=== PATIENT | female | born 1965 | race Caucasian/White ===

== ENCOUNTER 2020-02-11 15:45 | Emergency (ER) | payer BC ==
[2020-02-11] MEDS ORDERED: methylPREDNISolone Sodium Succinate 125 MG/2 ML SDV IM ONE (16:21)
[2020-02-11] MEDS ORDERED: HYDROmorphone 1 MG/ML Syringe IM ONE (16:21)
[2020-02-11] MEDS ORDERED: Acetaminophen/HYDROcodone 325-5 MG Tab PO ONE (16:23)
--- NOTE | 2020-02-11 16:29 | EDM.PDOC ---
ED HPI GENERAL MEDICAL PROBLEM - General Chief Complaint: Back Pain or Injury Stated Complaint: SEVER BACK PAIN RADIATING TO LEFT LEG Time Seen by Provider: 02/11/20 15:49 Source of Information: Reports: Patient History Limitations: Reports: No Limitations - History of Present Illness INITIAL COMMENTS - FREE TEXT/NARRATIVE: HISTORY AND PHYSICAL: History of present illness: Patient is a 54-year-old female who presents to the emergency room with complaints of acute on chronic back pain. She states she does take multiple controlled substances for her chronic back pain, although she is out of these recently due to a move to [place] from [place]. She last filled her medications in December 2019. Approximately 3 days ago she slipped and caught herself before falling. She says since that time she has had generalized back pain that radiates down her left glute. She declines wanting any imaging stating that she has had multiple x-rays, CT and MRIs in the past. She denies falling, hitting her head, urinary or fecal incontinence, numbness, tingling, weakness or neurological/motor deficits. She is requesting that multiple medications be refilled, stating "no one will refill these". She is unsure of all the names but does have 3 different pharmacies in which she has been filling her prescriptions with while living in [place]. Patient denies any fever, chills, headache, change in vision, syncope or near syncope. Denies any chest pain, back pain, shortness of breath or cough. Denies any abdominal pain, nausea, vomiting, diarrhea, constipation or dysuria. Has not noted any blood in urine or stool. Patient has been eating and drinking appropriately. Review of systems: As per history of present illness and below otherwise all systems reviewed and negative. Past medical history: As per history of present illness and as reviewed below otherwise noncontributory. Surgical history: As per history of present illness and as reviewed below otherwise noncontributory. Social history: See social history for further information Family history: As per history of present illness and as reviewed below otherwise noncontributory. Physical exam: General: Well-developed and well-nourished 54-year-old female. Alert and oriented. Nontoxic-appearing and in no acute distress. HEENT: Atraumatic, normocephalic, pupils equal and reactive bilaterally, ne gative for conjunctival pallor or scleral icterus, mucous membranes moist, TMs normal bilaterally, throat clear, neck supple, nontender, trachea midline. No drooling or trismus noted. No meningeal signs. No hot potato voice noted. Lungs: Clear to auscultation, breath sounds equal bilaterally, chest nontender. Heart: S1S2, regular rate and rhythm without overt murmur Abdomen: Soft, nondistended, nontender. Negative for masses or hepatosplenomegaly. Negative for costovertebral tenderness. Pelvis: Stable nontender. C-spine/Back: No pinpoint vertebral tenderness upon palpation. Bilateral paraspinous tenderness in the thoracic and lumbar region. No crepitus, step- offs or obvious deformities. Patient is ambulatory into the emergency room without difficulty or deficit. Able to rock back on heels and walk on toes. Denies any urinary or fecal incontinence. Denies any numbness, tingling or saddle paresthesia. No concerns of serious infection, fracture or cord compression, or cauda equina syndrome. Deep tendon reflexes brisk bilaterally. Skin: Intact, warm, dry. No lesions or rashes noted. Hematologic: No petechiae or purpra. Mucosa appropriate color and normal nail bed color and refill. Extremities: Atraumatic, moves all extremities per self without difficulty or deficits, negative for cords or calf pain. Neurovascular unremarkable. Neuro: Awake, alert, oriented. Cranial nerves II through XII unremarkable. Cerebellum unremarkable. Motor and sensory unremarkable throughout. Exam nonfocal. Notes: Patient declines wanting any diagnostics at this time. Nursing staff has called the pharmacies the patient provided, some of the medications she is requesting to be refilled have not been filled since 2019. I will do a 20 day supply of patient's medications, this way she can be followed up with by primary care provider and establish care to have her medications further refilled. Upon reevaluation she is appropriate for discharge. Supportive care measures were reviewed and discussed. Voices understanding and is agreeable to plan of care. Denies any further questions or concerns at this time. Diagnostics: Declines Therapeutics: Solu-Medrol, Morganza #1 Prescription: Abilify (#20) Wellbutril (#20) Morganza (#15) Albuterol (#1) Sulindac (#40) Impression: Encounter for pain management Encounter for medication refill Back pain Plan: 1. The medication you received today does cause drowsiness, so do not drive for the remaining day 2. When resting please lay on a flat firm surface. Limit your immobility to prevent muscle stiffness. Get up to ambulate/move around/gentle stretching multiple times throughout the day. May alternate heat and ice to the painful areas 3. Tylenol as needed for back pain. 4. Please establish with a primary care provider to have all of your home medications refilled. THE ER WILL NOT REFILL your medications further 5. If your symptoms should worsen, new symptoms develop or any of the signs and symptoms we discussed should arise please return to the emergency room or call 911 (if needed). Definitive disposition and diagnosis as appropriate pending reevaluation and review of above. back Pain Score (Numeric/FACES): 7 - Related Data Allergies Allergy/AdvReac Type Severity Reaction Status Date / Time codeine Allergy Other Verified 02/11/20 16:21 diphenhydramine Allergy Other Verified 02/11/20 16:21 [From Benadryl] Home Meds: Home Meds ARIPiprazole [Abilify] 5 mg PO DAILY 20 Days #20 02/11/20 [Rx] Acetaminophen/HYDROcodone [Morganza 325-5 MG] 1 tab PO TID #15 tablet 02/11/20 [Rx] Albuterol [Ventolin HFA] 2 puff INH Q4H PRN #1 inhaler 02/11/20 [Rx] Hydrocodone/Acetaminophen [Hydrocodone-Acetamin 10-325 mg] 1 each PO Q12HR 02/11/20 [History] Sulindac [Clinoril] 150 mg PO BID 20 Days #40 cap 02/11/20 [Rx] buPROPion HCL [Wellbutrin Xl] 150 mg PO DAILY 20 Days #20 02/11/20 [Rx] ED ROS GENERAL - Review of Systems Review Of Systems: Comprehensive ROS is negative, except as noted in HPI. ED EXAM,LOWER BACK PAIN/INJURY - Physical Exam Exam: See Below (See dictation) Course - Vital Signs Last Recorded V/S: Last Vital Signs Temp 97.5 F 02/11/20 16:16 Pulse 80 02/11/20 16:16 Resp 16 02/11/20 16:16 BP 136/61 02/11/20 16:16 Pulse Ox 97 02/11/20 16:16 - Orders/Labs/Meds Meds: Medications Discontinued Medications Generic Name Dose Route Start Last Admin Trade Name Freq PRN Reason Stop Dose Admin Hydrocodone Bitart/Acetaminophen 1 tab 02/11/20 16:23 02/11/20 16:48 Morganza 325-5 Mg PO 02/11/20 16:24 1 tab ONETIME ONE Administration Hydromorphone HCl 1 mg 02/11/20 16:21 Dilaudid IM 02/11/20 16:22 ONETIME ONE Methylprednisolone Sodium Succinate 125 mg 02/11/20 16:21 02/11/20 16:48 Solu-Medrol IM 02/11/20 16:22 125 mg ONETIME ONE Administration Departure - Departure Time of Disposition: 16:54 Disposition: Home, Self-Care 01 Clinical Impression: Encounter for pain management, Encounter for medication refill Back pain Qualifiers: Back pain location: low back pain Chronicity: unspecified Back pain laterality: bilateral Sciatica presence: with sciatica Sciatica laterality: sciatica of left side Qualified Code(s): M54.42 - Lumbago with sciatica, left side - Discharge Information Prescriptions: ARIPiprazole [Abilify] 5 mg PO DAILY 20 Days #20 Sulindac [Clinoril] 150 mg PO BID 20 Days #40 cap Acetaminophen/HYDROcodone [Morganza 325-5 MG] 1 tab PO TID #15 tablet Albuterol [Ventolin HFA] 2 puff INH Q4H PRN #1 inhaler PRN Reason: Shortness Of Breath buPROPion HCL [Wellbutrin Xl] 150 mg PO DAILY 20 Days #20 Instructions: Pain Medicine Instructions, [id number] Referrals: PCP,Not In Area [Primary Care Provider] - Forms: ED Department Discharge Additional Instructions: The following information is given to patients seen in the emergency department who are being discharged to home. This information is to outline your options for follow-up care. We provide all patients seen in our emergency department with a follow-up referral. The need for follow-up, as well as the timing and circumstances, are variable depending upon the specifics of your emergency department visit. If you don't have a primary care physician on staff, we will provide you with a referral. We always advise you to contact your personal physician following an emergency department visit to inform them of the circumstance of the visit and for follow-up with them and/or the need for any referrals to a consulting specialist. The emergency department will also refer you to a specialist when appropriate. This referral assures that you have the opportunity for follow-up care with a specialist. All of these measure are taken in an effort to provide you with optimal care, which includes your follow-up. Under all circumstances we always encourage you to contact your private physician who remains a resource for coordinating your care. When calling for follow-up care, please make the office aware that this follow-up is from your recent emergency room visit. If for any reason you are refused follow-up, please contact the [facility] Emergency Department at and asked to speak to the emergency department charge nurse. [facility] [address] [place] [id number] [id number] Thank you for choosing the [facility] emergency department in [place] for your medical needs today. It was a pleasure caring for you. Today you were seen in the emergency department for back pain and medication refill. 1. The medication you received today does cause drowsiness, so do not drive for the remaining day 2. When resting please lay on a flat firm surface. Limit your immobility to prevent muscle stiffness. Get up to ambulate/move around/gentle stretching multiple times throughout the day. May alternate heat and ice to the painful areas 3. Tylenol as needed for back pain. 4. Please establish with a primary care provider to have all of your home medications refilled. THE ER WILL NOT REFILL your medications further 5. If your symptoms should worsen, new symptoms develop or any of the signs and symptoms we discussed should arise please return to the emergency room or call 911 (if needed). Sepsis Event Note (ED) - Evaluation Sepsis Screening Result: No Definite Risk - Focused Exam Vital Signs: Vital Signs Temp Pulse Resp BP Pulse Ox 02/11/20 16:16 97.5 F 80 16 136/61 97
== END 2020-02-11 17:20 | disposition home or self-care (01) ==
LOC: MW.ED 15:45
DX: M54.42 Lumbago with sciatica, left side (principal); Z76.0 Encounter for issue of repeat prescription; Z88.8 Allergy status to other drugs, medicaments and biological substances; Z88.5 Allergy status to narcotic agent
CPT/HCPCS: 96372; 99283; A9270; J2930; 99282